=== PATIENT | male | born 1990 | race Two or more races ===

== ENCOUNTER 2018-12-12 16:44 | Emergency (ER) | payer BC ==
[~2018-12-12] VITALS: Ht 185.4 cm; Wt 128.6 kg
[2018-12-12 17:35] LABS: BASOPHILS # (AUTO) 0.02 x10^3/uL (0-0.1); BASOPHILS % (AUTO) 0 % (0-1); EOSINOPHILS # (AUTO) 0.04 x10^3/uL (0-0.4); EOSINOPHILS % (AUTO) 1 % (1-7); LYMPHOCYTES # (AUTO) 1.14 x10^3/uL (1-3.4); LYMPHOCYTES % (AUTO) 15 % (22-44); MD NO; MEAN CORPUSCULAR HEMOGLOBIN 31.4 pg (27.5-34.5); MEAN CORPUSCULAR HGB CONC 34.2 g/dL (33.2-36.2); MEAN CORPUSCULAR VOLUME 91.7 fL (81-97); MEAN PLATELET VOLUME 8.8 fL (7.4-10.4); MONOCYTES # (AUTO) 0.48 x10^3/uL (0.2-0.8); MONOCYTES % (AUTO) 6 % (2-9); NEUTROPHILS % (AUTO) 78 % (42-75); PLATELET COUNT 188 x10^3/uL (130-400); RED BLOOD COUNT 5.46 x10^6/uL (4.38-5.82); RED CELL DISTRIBUTION WIDTH 13.3 % (9.4-14.8)
[2018-12-12 17:42] LABS: ALANINE AMINOTRANSFERASE 39 U/L (12-78); ALBUMIN 3.7 g/dL (3.4-5.0); ANION GAP 3 mmol/L (5-15); CALCIUM 8.5 mg/dL (8.5-10.1); CHLORIDE 109 mmol/L (98-107); CREATININE 1.05 mg/dL (0.7-1.3)
[2018-12-12 17:45] LABS: ALKALINE PHOSPHATASE 102 U/L (45-117); BILIRUBIN,TOTAL 0.4 mg/dL (0.2-1.0); TOTAL PROTEIN 7.2 g/dL (6.4-8.2)
--- NOTE | 2018-12-12 19:38 | NUR ---
pt called to room from lobby
[2018-12-12 19:45] VITALS: BP 126/71
--- NOTE | 2018-12-12 20:10 | NUR ---
PT UP TO BR. INSTRUCTED ON CLEAN CATCH URINE SAMPLE. PT DENIES NEED TO HAVE BM AT THIS TIME.
[2018-12-12 20:25] LABS: MICROSCOPIC NOT IND
[2018-12-12 20:37] LABS: CULTURE INDICATED? NO
--- NOTE | 2018-12-12 20:38 | NUR ---
D/C INSTRUCTIONS, MEDS, & F/U APPT RV'WD WITH PT, HE VERBALIZES UNDERSTANDING. RX GIVEN X1. PT AMBULATED OUT OF ED WITHOUT DIFFICULTY WITH GIRLFRIEND.
== END 2018-12-12 20:41 | disposition home or self-care (01) ==
LOC: ED 20:20
DX: R10.84 Generalized abdominal pain (principal); R19.7 Diarrhea, unspecified
CPT/HCPCS: 36415; 80053; 81003; 83690; 85025; 99283

== ENCOUNTER 2019-10-22 18:12 | Emergency (ER) | payer BC ==
[~2019-10-22] VITALS: Ht 185.4 cm; Wt 134.2 kg
--- NOTE | 2019-10-22 19:06 | NUR ---
FROM LOBBY TO ROOM AT THIS TIME
[2019-10-22 19:09] VITALS: BP 138/77
--- NOTE | 2019-10-22 19:11 | NUR ---
THIS IS A 29 YO M W/ C/O BLOODY STOOL SINCE WEDNESDAY AND ABD CRAMPING. PT HAS HX OF IBS. NADN. VS STABLE. PT IS RESTING ON GURNEY W/ PROVIDER AT BEDSIDE. PT CONNECTED TO MONITORS. CALL LIGHT IN REACH.
[2019-10-22] MEDS ORDERED: SODIUM CHLORIDE FLUSH 10ML SYR IVF ONE (19:30)
[2019-10-22 19:33] LABS: BASOPHILS # (AUTO) 0.02 x10^3/uL (0-0.1); BASOPHILS % (AUTO) 0 % (0-1); EOSINOPHILS # (AUTO) 0.08 x10^3/uL (0-0.4); EOSINOPHILS % (AUTO) 1 % (1-7); LYMPHOCYTES # (AUTO) 1.39 x10^3/uL (1-3.4); LYMPHOCYTES % (AUTO) 21 % (22-44); MD NO; MEAN CORPUSCULAR HEMOGLOBIN 32.4 pg (27.5-34.5); MEAN CORPUSCULAR HGB CONC 34.6 g/dL (33.2-36.2); MEAN CORPUSCULAR VOLUME 93.9 fL (81-97); MEAN PLATELET VOLUME 9.5 fL (7.4-10.4); MONOCYTES # (AUTO) 0.51 x10^3/uL (0.2-0.8); MONOCYTES % (AUTO) 8 % (2-9); NEUTROPHILS # (AUTO) 4.52 x10^3/uL (1.8-6.8); NEUTROPHILS % (AUTO) 69 % (42-75); PLATELET COUNT 179 x10^3/uL (130-400); RED BLOOD COUNT 5.09 x10^6/uL (4.38-5.82); RED CELL DISTRIBUTION WIDTH 12.9 % (9.4-14.8)
--- NOTE | 2019-10-22 19:40 | NUR ---
PIV STARTED. PROVIDER AT BEDSIDE FOR RECTAL EXAM.
[2019-10-22 19:45] LABS: ALANINE AMINOTRANSFERASE 63 U/L (12-78); ALBUMIN 3.5 g/dL (3.4-5.0); ANION GAP 7 mmol/L (5-15); CALCIUM 8.4 mg/dL (8.5-10.1); CHLORIDE 109 mmol/L (98-107); CREATININE 1.21 mg/dL (0.7-1.3)
[2019-10-22 19:48] LABS: ALKALINE PHOSPHATASE 102 U/L (45-117); BILIRUBIN,TOTAL 0.4 mg/dL (0.2-1.0); TOTAL PROTEIN 7.1 g/dL (6.4-8.2)
--- NOTE | 2019-10-22 19:52 | NUR ---
PT TO CT.
[2019-10-22] MEDS ORDERED: OMNIPAQUE 350 MG/ML, 100ML BOTTLE ONE (22:36)
== END 2019-10-22 21:18 | disposition home or self-care (01) ==
LOC: ED 20:35
DX: K57.30 Diverticulosis of large intestine without perforation or abscess without bleeding (principal); K92.1 Melena; J45.909 Unspecified asthma, uncomplicated
CPT/HCPCS: 36415; 74174; 80053; 83690; 84443; 85025; 99284; Q9967

== ENCOUNTER 2020-05-02 13:05 | Emergency (ER) | payer BC ==
[~2020-05-02] VITALS: Ht 185.4 cm; Wt 136.4 kg
--- NOTE | 2020-05-02 14:00 | NUR ---
SELF PAY REPRESENTATIVE: PT TO ROOM FROM LOBBY.
--- NOTE | 2020-05-02 14:25 | NUR ---
Assumed care of patient. C/O epigastric pain radiating to his back x 8 days. Patients states it is worse with eating. He also reports diarrhea related to IBS. Hx h. pylori. NAD. SO at bedside. Placed on NIBP, pulse ox, and pipe fitter helper. Will continue to monitor.
--- NOTE | 2020-05-02 14:43 | NUR ---
Report received from CHAVA Orourke. Plan of care discussed
[2020-05-02] MEDS ORDERED: MAALOX/HYOSCYAMINE/LIDOCAINE 45 ML BTL ONE (14:45)
--- NOTE | 2020-05-02 14:51 | NUR ---
Patient medicated per emar, tolerated well. US tech in room
[2020-05-02 14:53] LABS: MICROSCOPIC NOT IND
[2020-05-02] MEDS ORDERED: MAALOX/HYOSCYAMINE/LIDOCAINE 45 ML BTL PO ONE (15:00)
[2020-05-02 15:02] LABS: BASOPHILS # (AUTO) 0.02 x10^3/uL (0-0.1); BASOPHILS % (AUTO) 0 % (0-1); EOSINOPHILS # (AUTO) 0.05 x10^3/uL (0-0.4); EOSINOPHILS % (AUTO) 1 % (1-7); LYMPHOCYTES # (AUTO) 1.05 x10^3/uL (1-3.4); LYMPHOCYTES % (AUTO) 19 % (22-44); MD NO; MEAN CORPUSCULAR HEMOGLOBIN 32.4 pg (27.5-34.5); MEAN CORPUSCULAR HGB CONC 34.7 g/dL (33.2-36.2); MEAN CORPUSCULAR VOLUME 93.5 fL (81-97); MEAN PLATELET VOLUME 9.5 fL (7.4-10.4); MONOCYTES # (AUTO) 0.47 x10^3/uL (0.2-0.8); MONOCYTES % (AUTO) 8 % (2-9); NEUTROPHILS # (AUTO) 4.06 x10^3/uL (1.8-6.8); NEUTROPHILS % (AUTO) 72 % (42-75); PLATELET COUNT 171 x10^3/uL (130-400); RED BLOOD COUNT 5.02 x10^6/uL (4.38-5.82); RED CELL DISTRIBUTION WIDTH 13.1 % (9.4-14.8)
[2020-05-02 15:09] LABS: ALANINE AMINOTRANSFERASE 70 U/L (12-78); ALBUMIN 3.5 g/dL (3.4-5.0); ANION GAP 5 mmol/L (5-15); CALCIUM 8.8 mg/dL (8.5-10.1); CHLORIDE 110 mmol/L (98-107); CREATININE 0.87 mg/dL (0.7-1.3)
[2020-05-02 15:11] LABS: ALKALINE PHOSPHATASE 84 U/L (45-117); BILIRUBIN,TOTAL 0.5 mg/dL (0.2-1.0); TOTAL PROTEIN 6.6 g/dL (6.4-8.2)
[2020-05-02 15:13] VITALS: BP 125/63
--- NOTE | 2020-05-02 16:02 | NUR ---
Patient given discharge instructions and they have confirmed that they understand the instructions. Patient ambulatory with steady gait.
== END 2020-05-02 16:08 | disposition home or self-care (01) ==
LOC: ED 15:51
DX: K29.00 Acute gastritis without bleeding (principal); R10.13 Epigastric pain; R11.0 Nausea; R19.7 Diarrhea, unspecified; I44.5 Left posterior fascicular block; J45.909 Unspecified asthma, uncomplicated
CPT/HCPCS: 36415; 76700; 80053; 81003; 83690; 85025; 93005; 99285